=== PATIENT | female | born 1975 | race Caucasian/White ===

== ENCOUNTER → 2017-09-21 07:50 | Outpatient (CLI) | payer OTHER, SELFPAY ==
[2017-09-21 12:23] LABS: Absolute Lymphocyte Count 3.03 X10^3/ul (0.83-4.51); Absolute Neutrophil Count 6.6 X10^3/uL (2.0-7.7); Basophil# 0.03 X10^3/uL; Basophil% 0.3 % (0-1); Eosinophil# 0.22 X10^3/uL; Hematocrit 38.5 % (37-47); Hemoglobin 12.4 g/dl (12.0-15.0); Lymphocyte # 3.03 X10^3/ul (4.0); Lymphocyte % 28.1 % (19-41); Mean Corp Hgb Conc 32.2 g/gl (32-36); Mean Corpuscular Hgb 30.8 pg (27.0-32.0); Mean Corpuscular Volume 95.5 fL (81-99); Mean Platelet Vol. 10.1 fl (6.2-12.0); Monocyte% 7.4 % (0-10); Neutrophil % 61.4 % (47-70); Platelet Count 334 K/mm3 (150-450); RBC Distribution Width CV 14.8 % (11.6-14.6); RBC Distribution Width SD 49.2 fl (35.1-43.9); Red Blood Count 4.03 M/mm3 (4.2-5.4); White Blood Count 10.8 K/mm3 (4.4-11.0)
[2017-09-21 12:25] LABS: POSITIVE COUNT NO; POSITIVE DIFFERENTIAL NO; POSITIVE MORPHOLOGY NO
[2017-09-21 12:38] LABS: Hemoglobin A1c 6.2 % (4.2-6.3)
[2017-09-21 12:42] LABS: ALB/GLOB Ratio 0.9 RATIO (0.9-2.4); AST(SGOT) 14 U/L (15-37); Alanine Aminotransfer ALT/SGPT 29 U/L (13-56); Albumin, Serum 3.5 g/dL (3.2-5.0); Alkaline Phosphatase 64 U/L (45-117); Anion Gap 8 (5-15); BUN 17 mg/dL (7-18); BUN/Creat Ratio 23.6 RATIO (10-20); Calcium,Total 8.2 mg/dL (8.5-10.1); Chloride 102 mmol/L (98-107); Cholesterol 177 mg/dL (200); Creatinine, Serum 0.72 mg/dL (0.55-1.02); EST Glomerular Filtration Rate 95 mL/min (>60); Est Glom Filt Rate - Afr Amer 115 mL/min (>60); Globulin 3.7 g/dL (2.2-4.2); Glucose 87 mg/dL (74-106); High Density Lipoprotein 42 mg/dL; Potassium 3.9 mmol/L (3.5-5.1); Protein, Total 7.2 g/dL (6.4-8.2); Sodium Level 138 mmol/L (136-145); Triglycerides 212 mg/dL; Very Low Density Lipoprotein 42 mg/dL (5-40)
[2017-09-21 12:47] LABS: Microalbumin,Random Urine 35.6 mg/L (NO RANGE EST.)
== END ==
PROVIDERS: Family Provider Family Medicine; PCP Family Medicine; Visit Provider Family Medicine
DX: E11.9 Type 2 diabetes mellitus without complications (principal); M06.9 Rheumatoid arthritis, unspecified
CPT/HCPCS: 36415; 80053; 80061; 82043; 82570; 83036; 85025

== ENCOUNTER 2018-02-15 22:40 | Emergency (ER) | payer OTHER, SELFPAY ==
[2018-02-15 22:41] VITALS: BP 151/108; PULSE 90; RESP 19; TEMP 36.5; O2SAT 96; BMI 34.9
--- NOTE | 2018-02-15 23:00 | EKG12_ITS ---
Test Reason : CP Blood Pressure : / mmHG Vent. Rate : 086 BPM Atrial Rate : 086 BPM P-R Int : 148 ms QRS Dur : 098 ms QT Int : 370 ms P-R-T Axes : 060 044 -10 degrees QTc Int : 442 ms Normal sinus rhythm Nonspecific T wave abnormality Abnormal ECG Confirmed by JOSE ANGEL CORTES, ECTOR ([id number]), pictures editor SCOTT NIEVES ([id number]) on 02/18/2018 3:06:20 PM Referred By: ARJUN Confirmed By:ECTOR WALTER MD
--- NOTE | 2018-02-15 23:01 | ED.VISSUMM ---
- ER Visit Summary Date of Service: 02/15/18 Chief Complaint: Chest pain History of Present Illness: The patient is a 42 F continuous right sided chest pain for the past week. Pain into the back. No left-sided pain. Dyspnea. Patient states had a upper respiratory illness a few weeks ago for sinus. Was placed on an antibiotic by PCP, states developing to her lungs, had a second round of antibiotics. Pain has been persistent. Worse with deep breaths and laying down. No PE risk factors. No tobacco history. History of rheumatoid arthritis on immunosuppressants. History diabetes, hypertension hypercholesterolemia. Stress test this past summer for screening due to risk factors and family history of MIs. Physical Examination: General: Alert and oriented ?3, no acute distress HEENT: Normocephalic, atraumatic. Moist mucosa membranes Neck: supple, nontender. Cardiovascular: Regular rate and rhythm, no murmurs. Chest wall tenderness right upper chest along with right posterior ribs. No crepitus. Respiratory: Normal breath sounds, symmetric, no distress Abdomen: Soft, nontender, nondistended Extremities: Nontender, no edema, pulses intact ?4 Neuro: no focal neurological deficits. Test Results: EKG: Sinus Rate of 86, no ST changes. T wave inversions inferior leads. White count 19. Neutrophils 67. Creatinine 0.84. Troponin negative. D-dimer 0.45. UA negative. Chest x-ray negative. Emergency Department Course and Treatment: Patient presents with right-sided chest pain. Recent illness. Cardiac workup negative. Pain with deep breaths complaining of dyspnea, d-dimer obtained in the negative range. EKG did notes T wave inversions inferior leads. Persistent symptoms for a week, negative troponin less likely cardiac in nature. KHUSHI score 0. Heart score of 3. Patient was given Toradol with improvement of symptoms. She has Aleve at home. Times complains of chest tightness, she has a nebulizer at home, prescription for medications will be refilled. She will follow-up with her PCP. Signs and symptoms discussed return. All questions were answered. Treatment Plan: [] Disposition: Discharge Impression: 1. Atypical chest pain 2. Pleurisy This note was generated with Sensegonation software. It may contain incorrect words, spelling, and punctuation that were not noted in review of the chart prior to signing ED Disposition - Plan for ED Patient: Disposition: Home or Assisted Living Chief Complaint: Chest Pain Diagnosis: Atypical chest pain Instructions: ED Chest Pain Pleurisy Prescriptions: Albuterol Aerosols [Ventolin Aerosols] 2.5 mg INHALATION Q4HWA.RT PRN #[id number] vial.neb. PRN Reason: Wheezing Referrals: Naina Hunter MD [Primary Care Provider] - 3-5 Days
[2018-02-15 23:40] VITALS: BP 129/75; PULSE 74; RESP 26; O2SAT 96
[2018-02-15 23:51] LABS: Absolute Lymphocyte Count 4.43 X10^3/ul (0.83-4.51); Absolute Neutrophil Count 12.7 X10^3/uL (2.0-7.7); Basophil# 0.04 X10^3/uL; Basophil% 0.2 % (0-1); Eosinophil# 0.23 X10^3/uL; Eosinophils% 1.2 % (0-5); Hemoglobin 12.5 g/dl (12.0-15.0); Lymphocyte # 4.43 X10^3/ul (4.0); Lymphocyte % 23.4 % (19-41); Mean Corp Hgb Conc 32.9 g/gl (32-36); Mean Corpuscular Hgb 31.6 pg (27.0-32.0); Mean Corpuscular Volume 96.2 fL (81-99); Mean Platelet Vol. 10.2 fl (6.2-12.0); Monocyte# 1.24 X10^3/uL; Monocyte% 6.5 % (0-10); Platelet Count 266 K/mm3 (150-450); RBC Distribution Width SD 51.1 fl (35.1-43.9); Red Blood Count 3.95 M/mm3 (4.2-5.4)
[2018-02-15 23:52] LABS: POSITIVE COUNT NO; POSITIVE DIFFERENTIAL NO; POSITIVE MORPHOLOGY NO
[2018-02-16] VITALS: BP 127/71; PULSE 74; RESP 18; O2SAT 98
[2018-02-16 00:13] LABS: International Normalized Ratio 0.9; Prothrombin Time (Protime)PT. 12.6 SECONDS (11.7-14.9)
[2018-02-16 00:14] LABS: Partial Thromboplast Time 26.1 Seconds (24.1-36.2)
[2018-02-16] MEDS: 0.9% Normal Saline 1,000 ML 150 ML IV (00:14)
[2018-02-16 00:18] LABS: D-Dimer Quantitative (DVT/PE) 0.45 FEU/ug/m (0.27-0.49)
--- NOTE | 2018-02-16 00:31 | RAD_ITS ---
STUDY: X-RAY CHEST REASON FOR EXAM: Female, 42 years old. Right-sided chest pain for 2 weeks. TECHNIQUE: PA and lateral views of the chest. COMPARISON: February 13, 2017. FINDINGS: Cardiac monitoring leads are present. The lungs are clear and expanded. There is no demonstrated pleural abnormality. Normal size heart. Normal mediastinum and hortensia. There is prominence of the pulmonary hilar arteries without peripheral pulmonary vascular congestion. There is atherosclerotic calcification of the aortic arch with tortuosity. There is an increased kyphosis of the thoracic spine. There is multilevel thoracic spondylosis. Normal visualized ribs, clavicles, and shoulders. There is no demonstrated abnormality of the visualized soft tissue structures of the upper abdomen. RAD/Chest PA and Lateral IMPRESSION: No radiographic evidence of acute cardiopulmonary disease. Electronically Signed: Mirian Pryor MD at 1:11 EDT , Service support ,
[2018-02-16 00:41] LABS: Anion Gap 10 (5-15); BUN 16 mg/dL (7-18); Chloride 103 mmol/L (98-107); Creatinine, Serum 0.84 mg/dL (0.55-1.02); EST Glomerular Filtration Rate 79 mL/min (>60); Est Glom Filt Rate - Afr Amer 95 mL/min (>60); Estimated Creatinine Clearance 88.91 ml/min; Glucose 176 mg/dL (74-106); Sodium Level 137 mmol/L (136-145)
[2018-02-16 01:00] VITALS: BP 126/77; PULSE 79; RESP 18; O2SAT 94
[2018-02-16 02:00] VITALS: BP 147/78; PULSE 78; RESP 18; O2SAT 94
[2018-02-16] MEDS: Ketorolac 30 MG/ML Syringe IV (02:01)
[2018-02-16 02:02] LABS: Bacteria 0 SEEN /hpf (None Seen); Mucous, Urine 0 SEEN /hpf (<or=2+); Red Blood Cells-Urine 0 SEEN /hpf (0-5); Squamous Epithelial Cells - UA 0 SEEN /hpf (5-10); White Blood Cells 0 SEEN /hpf (0-5)
[2018-02-16 02:04] LABS: Color, Urine Yellow (Yellow); Glucose, Dipstick 50 mg/dl (Normal); Ketone-Dipstick 5 mg/dl (Negative); Leukocyte Esterase-Dipstick Negative /ul (Negative); Nitrite-Dipstick Negative (Negative); Occult Blood-Urine Negative /ul (Negative); Protein-Dipstick Negative (Negative); Specific Gravity, Urine 1.015 (1.002-1.030); Urine Bilirubin Dipstick Negative (Negative); Urine Clarity Clear (Clear); Urine Urobilinogen Normal (Normal); Urine pH 6.5 (5.0 - 8.0)
[2018-02-16 02:33] VITALS: BP 133/73; PULSE 83; RESP 16; O2SAT 98
== END 2018-02-16 02:40 | disposition home or self-care (01) ==
PROVIDERS: Emergency Provider Emergency Medicine; Family Provider Family Medicine; PCP Family Medicine
DX: R07.89 Other chest pain (principal); R09.1 Pleurisy; M06.9 Rheumatoid arthritis, unspecified; E11.9 Type 2 diabetes mellitus without complications; I10 Essential (primary) hypertension; Z79.899 Other long term (current) drug therapy
CPT/HCPCS: 71046; 80048; 81001; 84484; 85025; 85379; 85610; 85730; 93005; 96361; 96374; 99285; J7030; A4216

== ENCOUNTER 2018-08-13 07:30 | Outpatient (RCR) | payer OTHER, SELFPAY ==
--- NOTE | 2018-07-26 09:16 | HP.PTEVAL_ITS ---
Patient's Visit Information CAREY ULRICH is a 42 year old F referred to Physical Therapy by SHAGUFTA Cantu with a diagnosis of DEGENERATION OF LUMBAR INTERERTBRAL DISC,LUMBAR STENOSIS,RADICULOPATHY. Date of Evaluation: 07/26/18 Physical Therapist: Albert Boston, PT, Cert MDT, OCS - Visit Plan Frequency: 2x /Week Duration: 4 Weeks Plan: GRADED LUMBAR NEUTRAL DLS PROGRAM,POSTURAL EX'S,MODALITIES FOR PAIN RELEIVE - Subjective Findings: This 42 y/o female presents to physical therapy lumbar pain for 2 years. Patient pain located symmtrical lumbar intermittant pain burning and knive pain. Patient had epidual injection x3 ,burning nerve helped leg pain.Patient seen family DR then referred to pain managemnt. Aggravating factors lifting,bending,sitting,driving,standing,job demands. Alleviating symptoms better with ice rest. Coughing/sneezing-.Bowel/bladder good. Sleeping good at night.No h/o trauma. Prior PT prior to MRI.Patient seen chiropractor Patient had MRI and x-rays. Patient pain affects QOL of function and ADL'S. SOCIAL: . VOCATION: [employer] ,[employer]. - Pain Bilateral Back Pain Intensity (Out of 10): 3 Pain Intensity Range: 10 - Objective POSTURE: mild foward posture. GAIT: normal momo. SYMMTRIES: align. PALAPTION: unremarkable. FLEXABLITY: hams min tight. MMT: quads/hams 4/5,hip flexion /abd 4-/5 ,ankle 4/. LUMBAR ROM: flexion min loss,extension min/mod loss,side glides min/mod loss - Special Tests L/S Slump test left side: Negative L/S Slump test right side: Negative L/S Left Straight Leg Raise: Negative L/S Right Straight Leg Raise: Negative Lumbar Standing: Flexion - Mechanical Response: No effect Lumbar Standing: Flexion - Symptoms During Testing: No effect Lumbar Standing: Flexion - Symptoms After Testing: No effect Lumbar Standing: Extension - Symptoms During Testing: Increases Lumbar Standing: Extension - Symptoms After Testing: No worse Lumbar Standing: Right Side Glides - Mechanical Response: No effect Lumbar Standing: Right Side [place] - Symptoms During Testing: Increases Lumbar Standing: Right Side [place] - Symptoms After Testing: No worse Lumbar Standing: Left Side [place] - Mechanical Response: No effect Lumbar Standing: Left Side [place] - Symptoms During Testing: Increases Lumbar Standing: Left Side [place] - Symptoms After Testing: No worse Lumbar Lying: Flexion - Mechanical Response: No effect Lumbar Lying: Flexion - Symptoms During Testing: Increases Lumbar Lying: Flexion - Symptoms After Testing: No worse Lumbar Lying: Extension - Mechanical Response: No effect Lumbar Lying: Extension - Symptoms During Testing: Increases Lumbar Lying: Extension - Symptoms After Testing: Centralized - Goals Goal 1:: Independant with HEP Goal Time Frame: 4-6 Weeks Goal 2:: Independant with posture/body mechanics Goal Time Frame: 4-6 Weeks Goal 3:: Decrease lumbar pain by 50% or greater to improve function. Goal Time Frame: 4-6 Weeks Goal 4:: Patient to improve lumbar ROM for function of recovery Goal Time Frame: 4-6 Weeks Goal 5:: Patient to improve BACK MACY score by 5 points to improve QOL. Goal Time Frame: 4-6 Weeks - Rehabilitation Potential Physical Therapy Diagnosis: This patient has symmtrical lumbar pain with decrease ROM,poor TA/multifidas activation,strength impairs ADL'S and function thus benifit from skilled Rehabilitation Potential: Good - Anticipated Interventions Patient/Client Instruction: Educate patient on: Condition, Plan of Care For the Purpose of:: To decrease pain, To increase ROM, To improve muscle performance and motor function, To improve ability to perform ADL's, To improve performance and independence with ADL's, To improve ability of physical actions for home/community/work/leisure, To improve health of tissue, To decrease soft tissue restriction, To increase flexibility/ROM, To reduce risk of recurrence, To improve ability to perform tasks related to life management Therapeutic Exercise to Include: Strength training, Body mechanics, Postural training, Flexibilty training, Dynamic Lumbar Stabilization For the Purpose of:: To decrease pain, To increase ROM, To improve muscle performance and motor function, To improve ability to perform ADL's, To increase tolerance to activity/condition/position, To improve ability of physical actions for home/community/work/leisure, To improve health of tissue, To decrease soft tissue restriction, To increase flexibility/ROM, To improve endurance, To reduce risk of recurrence, To improve health and function, To improve ability to perform tasks related to life management TENS: Yes IF ES: Yes Cryotherapy (ice pack, ice massage): Yes Thermo therapy (hot pack): Yes Ultrasound (thermal/non thermal): Yes For the Purpose of:: To decrease pain, To decrease swelling/inflammation, To increase ROM, To improve nutrient delivery to tissue, To increase oxygenation perfusion, To improve health of tissue, To decrease soft tissue restriction Thank you for the opportunity to evaluate your patient. For Medicare and Medicare HMO plans, please review the plan of care and approve it. It will need to be FAXED BACK to us at [phone] for Medicare purposes. For Medicare only, by signing this I certify the plan of care. Please let me know if there are questions or concerns regarding this plan of care. Physician Signature: Date:
--- NOTE | 2019-01-02 15:54 | HP.PTDCNRP_ITS ---
HP - Discharge Summary (1) - Patient Information CAREY ULRICH was seen in my office for initial evaluation on 07/26/18. The following Plan of Care was established for this patient: Initial Frequency: 2x /Week Initial Duration: 4 Weeks - Anticipated Interventions Patient/Client Instruction: Educate patient on: Condition, Plan of Care For the Purpose of:: To decrease pain, To increase ROM, To improve muscle perfor radha and motor function, To improve ability to perform ADL's, To improve performance and independence with ADL's, To improve ability of physical actions for home/community/work/leisure, To improve health of tissue, To decrease soft tissue restriction, To increase flexibility/ROM, To reduce risk of recurrence, To improve ability to perform tasks related to life management Therapeutic Exercise to Include: Strength training, Body mechanics, Postural training, Flexibilty training, Dynamic Lumbar Stabilization For the Purpose of:: To decrease pain, To increase ROM, To improve muscle performance and motor function, To improve ability to perform ADL's, To increase tolerance to activity/condition/position, To improve ability of physical actions for home/community/work/leisure, To improve health of tissue, To decrease soft tissue restriction, To increase flexibility/ROM, To improve endurance, To reduce risk of recurrence, To improve health and function, To improve ability to perform tasks related to life management TENS: Yes IF ES: Yes Cryotherapy (ice pack, ice massage): Yes Thermo therapy (hot pack): Yes Ultrasound (thermal/non thermal): Yes For the Purpose of:: To decrease pain, To decrease swelling/inflammation, To increase ROM, To improve nutrient delivery to tissue, To increase oxygenation perfusion, To improve health of tissue, To decrease soft tissue restriction This patient was last seen in our office 08/13/18. Pertinent comments regarding their Physical therapy will appear below: Patient seen for PT for low back pain DDD . Pateint PT focused on DLS,postural ex's ,strengthening. Thus is d/c. At this point I will be discontinuing this patient from physical therapy. I would be happy to see this patient again in the future if found appropriate by the physician. Thank you! Albert Boston, PT, Cert MDT, OCS
== END 2018-08-13 19:00 | disposition home or self-care (01) ==
LOC: PT 07:30
PROVIDERS: Family Provider Family Medicine; PCP Family Medicine; Referring Provider Nurse Practitioner Family; Visit Provider Nurse Practitioner Family
DX: M51.36 Other intervertebral disc degeneration, lumbar region (principal); M47.817 Spondylosis without myelopathy or radiculopathy, lumbosacral region; M48.061 Spinal stenosis, lumbar region without neurogenic claudication; M47.816 Spondylosis without myelopathy or radiculopathy, lumbar region; M46.96 Unspecified inflammatory spondylopathy, lumbar region; M54.16 Radiculopathy, lumbar region
CPT/HCPCS: 97110; 97162

== ENCOUNTER 2020-12-06 05:54 | Day surgery (SDC) | payer MEDICAID, SELFPAY ==
[2020-12-06 06:39] VITALS: BP 131/54; PULSE 80; RESP 18; TEMP 36.4; O2SAT 98; BMI 33.4
[2020-12-06] MEDS: Lactated Ringers 1,000 ML 100 ML IV (06:52)
--- NOTE | 2020-12-06 07:00 | RAD_ITS ---
PROCEDURE: Transforaminal steroid injection on the left L4-S1 level. DATE OF EXAMINATION: 12/06/2020. INDICATION: Female, 45 years old. Chronic back pain. FLUOROSCOPY TIME (if supplied): (20 seconds) minutes/seconds. 3 images were obtained. RAD/Lumbar Spine 2 or 3 Views IMPRESSION: Intraoperative imaging provided for left L4-S1 foraminal steroid injection. Electronically Signed: Jeferson Fragoso MD at 14:07 EDT , Service support ,
[2020-12-06 07:26] LABS: Bedside Glucose 152 mg/dL (70-110)
[2020-12-06] MEDS: MethylPREDNISolone Acetate 80 MG/ML Vial (07:44)
[2020-12-06] MEDS: Lidocaine 1% (5 ml sdv) 5 ML Vial (07:44)
[2020-12-06] MEDS: Bupivacaine 0.25% 30 ML Vial (07:44)
[2020-12-06 07:56] VITALS: BP 115/71; BP 131/54; PULSE 80; RESP 16; TEMP 36.1; O2SAT 100
[2020-12-06 08:00] VITALS: BP 105/70; BP 131/54; PULSE 79; RESP 16; O2SAT 99
[2020-12-06 08:03] VITALS: BP 124/76; BP 131/54; PULSE 80; RESP 16; O2SAT 98
[2020-12-06 08:07] VITALS: BP 112/71; BP 131/54; PULSE 78; RESP 16; TEMP 36.1; O2SAT 100
[2020-12-06 08:33] VITALS: BP 131/54
--- NOTE | 2020-12-06 17:13 | PCM.OPRPT ---
Report of Operation Date of Procedure: 12/06/20 Description of Surgical Findings:: PREOPERATIVE DIAGNOSIS: Lumbosacral radiculopathy, lumbosacral degenerative disc disease, lumbosacral spinal stenosis POSTOPERATIVE DIAGNOSIS: Lumbosacral radiculopathy, lumbosacral degenerative disc disease, lumbosacral spinal stenosis PROCEDURE PERFORMED: Left-sided lumbar transforaminal epidural steroid injection, L4-5 and L5-S1. ANESTHESIA: BLOOD LOSS: COMPLICATIONS: DESCRIPTION OF PROCEDURE: History and physical of today was reviewed. Risks and benefits of the procedure were explained. The patient understood and agreed to proceed. Informed consent was obtained. IV inserted per routine protocol. The patient was taken to the operating room and placed in the prone position with a pillow positioned underneath the abdomen. The left side of the lower back was prepped and draped in a sterile fashion using iodine x3. Under fluoroscopy guidance on oblique view, the L4 through S1 vertebral bodies were visualized. The skin and subcutaneous tissue was anesthetized with approximately 5 mL of 1% lidocaine using a 25-gauge regular needle. Under direct visualization with fluoroscopy at approximately 35-degree angle, starting on the left L4, ending on the left L5, using a 22-gauge 5-inch spinal needle, the needle was advanced via the skin. The tip of the needle was maneuvered and directed towards the inferior and medial gutter of the transverse process at the superiormost aspect of the neural foramen. Once the tip of the needle was at the vicinity of the foramen, after negative aspiration for blood or CSF, a total of 1 mL of contrast was injected in divided doses between both levels to confirm correct placement of the needle as well as medial spread. The confirmation was obtained on AP as well as lateral view. After repeated negative aspiration and confirmation on AP as well as lateral view, a total of 6 mL of preservative-free 0.25% Marcaine with 80 mg of Depo-Medrol was injected in divided doses between both levels. The needles were then removed intact. The patient experienced no sign or symptoms of intrathecal or intravascular injection. The patient experienced no paresthesia. The procedure was completed without any apparent difficulty or any complications. The patient appeared to tolerate it well. ASSESSMENT AND PLAN: This is a 45-year-old female with lumbosacral radiculopathy, lumbosacral degenerative disk disease, and lumbosacral spinal stenosis, status post left-sided lumbar transforaminal epidural steroid injection at L4-5, L5-S1. The patient will continue her current medications. The patient will follow up in approximately 2 weeks for reevaluation.
== END 2020-12-06 09:03 | disposition home or self-care (01) ==
LOC: SDC 06:08 → AC 06:08
PROVIDERS: Referring Provider Anesthesiology Pain Medicine; Visit Provider Anesthesiology Pain Medicine
PROC: 3E0S3BZ Introduction of Anesthetic Agent into Epidural Space, Percutaneous Approach (ICD-10-PCS; CPT 64484; principal; 2020-12-06 07:45)
DX: M51.17 Intervertebral disc disorders with radiculopathy, lumbosacral region (principal); M48.07 Spinal stenosis, lumbosacral region; G89.29 Other chronic pain; I10 Essential (primary) hypertension; E11.9 Type 2 diabetes mellitus without complications; E78.00 Pure hypercholesterolemia, unspecified; M06.9 Rheumatoid arthritis, unspecified; Z79.891 Long term (current) use of opiate analgesic; Z79.84 Long term (current) use of oral hypoglycemic drugs; Z79.899 Other long term (current) drug therapy; Z86.16 Personal history of COVID-19
CPT/HCPCS: 64484; 64483; 72100; 82962; J7120

== ENCOUNTER 2021-07-11 09:56 | Day surgery (SDC) | payer MEDICAID, SELFPAY ==
--- NOTE | 2021-07-08 13:13 | HP.PCM_ITS ---
History and Physical Date of Admission: 07/11/21 Chief Complaint: Follow up/medication refill History of Present Illness: This is a 45 Y/O Female who was evaluated by our office today. Pain: low back and lt hip/ buttock,numbness in bilateral legs and feet Quality: constant, varies in intensity Region: pain across the lower back into the left hip/buttock and has numbness down the bilateral legs. Severity: ache, burning, numbness Timing: worsened since beginning of 2015 Aggravated by: standing for long periods, lifting Relieved by: laying flat in bed, ice Pain score (out of 10): 7-8/10 Other info: Follow up.States pain is now across lower back and down into left buttocks and numbness in bilateral legs and feet. Needs refill on [place]. states that she has been taking the norco at night when the pain is really bad to help her sleep. states that she was taking care of her mother who was on hospice and sunday. states she cannot bend her toes on her left foot. would like to Discuss SCS. Review of Systems: Patient denies any fever, chills, headache, change in weight without trying, vision or hearing problems. No cp, sob, [place], pnd, orthopnea, or peripheral edema.They note no lumps or swollen glands, no new rashes, changing moles, or change in bowel or bladder function. Mood has been stressed and depressed due to mothers passing. Past Medical History: h/o HTN h/o esophageal reflux h/o Type II Diabetes h/o rheumatoid arthritis h/o vitamin D deficiency h/o dyslipidemia h/o anxiety h/o depression h/o panic attacks h/o fatigue h/o asthma h/o colitis 03/09 h/o COVID 03/2020 s/p Cholecystectomy 2010 s/p shahram breast reduction 2004 s/p Bilateral tubal ligation 1997 s/p exploratory laparotomy s/p heart catheterization 2010 s/p hysterectomy 11/2017 s/p microdiskectomy L4-S1 05/2020 Family History: ======== Structured Family History ======== Father: Diabetes mellitus Mother: Arthritis, Diabetes mellitus Brother: Colitis, Diverticulitis Sister: Arthritis Father: Diabetes mellitus Mother: Arthritis, Diabetes mellitus Brother: Colitis, Diverticulitis Sister: Arthritis Social History: [Tobacco: Never smoker Pipe Smoker: No Cigar Smoker: No Chewing Tobacco User: No] Living situation: Occupation: [employer] Tobacco: Denies EtOH: Occasional Rec. drugs: Denies Allergies: codeine, ciprofloxacin Medications: 1) Crestor 5 mg oral tablet, One tablet daily 2) Cymbalta 60 mg oral delayed release capsule, Take 1 tablet by mouth once daily 3) diclofenac sodium 75 mg oral delayed release tablet, 1 PO BID with food. 4) esomeprazole 40 mg oral delayed release capsule, Take 1 tablet by mouth once daily 5) gabapentin 400 mg oral capsule, 1 PO TID 6) handicap placard, for 1 year 7) hydrocodone-acetaminophen 5 mg-325 mg oral tablet, 1 PO daily/BID PRN PAIN. 8) lisinopril 5 mg oral tablet, One tablet daily 9) loratadine 10 mg oral tablet, One tablet daily 10) metFORMIN 500 mg oral tablet, 2 tabs po qday 11) methocarbamol 500 mg oral tablet, 1 tablet BID as needed for spasms. 12) ProAir HFA 90 mcg/inh inhalation aerosol, 2 puffs q4 hrs 13) PT to eval and treat, to help develop a home exercise program 14) Singulair 10 mg oral tablet, Take 1 tablet by mouth once daily 15) spironolactone 50 mg oral tablet, One tablet daily 16) traZODone 50 mg oral tablet, One tablet BID Physical Examination: Wt: 209.6 lb Ht/Ln: 68 in BMI: 31.9 BP: 134/86 Pulse: 94 RR: 16 Temp: 96.9F Pain: 8 Well nourished and well developed in no acute distress. Alert and oriented to person, place and time. Affect is normal and appropriate. Mucosa pink and moist. Respirations even and unlabored. Neck is supple without significant lymphadenopathy or thyromegaly. Abdomen soft & non-tender. No HSM or masses appreciated. Extremities show no cyanosis, clubbing, or edema. Lumbar paraspinal muscle tenderness Lumbar ROM is limited due to pain worse with flexion. Bilateral lumbar facet loading is positive worse on the left. Sacroiliac Joint Tenderness on palpation. MICHELLE test is positive SLR is positive on the left. Motor and sensory exam is unchanged. 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 (Transmitted by JAMES DOCKERY NP) PRESCRIBE: hydrocodone-acetaminophen 5 mg-325 mg oral tablet, 1 PO daily/BID PRN PAIN., # 20, RF: 0. (Transmitted by JAMES DOCKERY NP) PRESCRIBE: methocarbamol 500 mg oral tablet, 1 tablet BID as needed for spasms., # 60, RF: 0. (Transmitted by JAMES DOCKERY NP) PRESCRIBE: diclofenac sodium 75 mg oral delayed release tablet, 1 PO BID with food., # 60, RF: 0. 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 Pt is still considering SCS Will refer the pt to [facility] for a SCS evaluation Pt will call for counseling regarding CBT and coping. UDS was reviewed and was compliant. Follow up with her surgeon. SOAPP score is 2 There are no signs of diversion or addiction with the pt, there is also no signs of abuse or misuse, continues to do well with their medications without any side effects, we will continue monitoring the pt closely. Weight loss was recommended today through diet and exercise. Life style modifications were also discussed today and the pt appears to understand. Risks and benefits of the above meds were discussed with the pt and they appear to understand. The common side effects of the medications were discussed and all of their questions and concerns were answered and they appear to understand Pt is to continue with her HEP. Pt has tried multiple modalities in the past with little or no success, will schedule the pt for a therapeutic/diagnostic caudal epidural steroid injection under fluoroscopy We have discussed the risks, benefits as well as alternatives of the procedure and the patient appears to understand and would like to proceed with the above plan. The above plan was discussed today with the pt in details and they appear to understand and agrees to continue with the plan.
[2021-07-11] MEDS: Lactated Ringers 1,000 ML 15 ML IV (10:25)
[2021-07-11 10:36] VITALS: BP 116/60; PULSE 90; RESP 18; TEMP 36.2; O2SAT 97; BMI 32.4
[2021-07-11 11:01] LABS: Bedside Glucose 145 mg/dL (70-110)
--- NOTE | 2021-07-11 11:35 | RAD_ITS ---
PROCEDURE: Caudal block. DATE OF EXAMINATION: 07/11/2021. INDICATION: Female, 45 years old. Chronic low back pain. FLUOROSCOPY TIME (if supplied): (2.1 seconds) minutes/seconds. One image was submitted. RAD/Fluor Guidance for Spine Inj IMPRESSION: Intraoperative imaging provided for caudal block. Electronically Signed: Jeferson Fragoso MD at 15:36 EST ,
[2021-07-11] MEDS: MethylPREDNISolone Acetate 80 MG/ML Vial (11:39)
[2021-07-11] MEDS: Bupivacaine 0.25% 30 ML Vial (11:39)
[2021-07-11] MEDS: Lidocaine 1% (5 ml sdv) 5 ML Vial (11:40)
[2021-07-11] MEDS: 0.9% Normal Saline (Pres. free 10 ML Vial (11:40)
[2021-07-11 11:47] VITALS: BP 116/60; BP 122/63; PULSE 91; RESP 18; TEMP 37.2; O2SAT 96
[2021-07-11 11:50] VITALS: BP 111/66; BP 116/60; PULSE 87; RESP 18; O2SAT 98
[2021-07-11 11:56] VITALS: BP 109/61; BP 116/60; PULSE 92; RESP 18; O2SAT 97
[2021-07-11 11:57] VITALS: BP 110/69; BP 116/60; PULSE 85; RESP 18; TEMP 37.3; O2SAT 97
[2021-07-11 12:20] VITALS: BP 116/60
--- NOTE | 2021-07-11 15:18 | OP.PCM_ITS ---
Report of Operation Date of Procedure: 07/11/21 Pre-Operative Diagnosis: Lumbosacral radiculopathy, lumbosacral degenerative di sc disease, lumbosacral spinal stenosis Post-Operative Diagnosis: Lumbosacral radiculopathy, lumbosacral degenerative disc disease, lumbosacral spinal stenosis Surgery/Procedure Performed:: Caudal epidural steroid injection under fluoroscopic guidance Type of Anesthesia: MAC Estimated Blood Loss (mL): Minimal Description of Procedure: DESCRIPTION OF PROCEDURE: History and physical of today was reviewed. Risks and benefits of the procedure were explained. The patient understood and agreed to proceed. Informed consent was obtained. IV inserted per routine protocol. The patient was taken to the operating room and placed in the prone position with a pillow positioned underneath the abdomen. The lower back and tailbone area was prepped and draped in a sterile fashion using iodine x3. Under fluoroscopy guidance on a lateral view, the caudal space was identified. The skin and subcutaneous tissue was anesthetized with approximately 3 mL of 1% lidocaine using a 25-gauge regular needle. Under direct visualization with fluoroscopy, using a 22-gauge 3-1/2-inch spinal needle, the needle was advanced via the skin through the sacral hiatus. The tip of the needle was passed through the sacrococcygeal ligament and advanced to approximately S4 area. After negative aspiration of blood or CSF, a total of 3 mL of contrast was injected to confirm correct placement of the needle as well as cephalad spread. The spread was followed to approximately L5 area. After confirmation on AP as well as lateral view and repeated negative aspiration, a total of 15 mL of preservative-free 0.125% Marcaine with 80 mg of Depo-Medrol was injected easily. The needle was then removed intact. The patient experienced no sign or symptoms of intrathecal or intravascular injection. The patient experienced no paresthesia. The procedure was completed without any apparent difficulty or any complications. The patient appeared to tolerate it well. ASSESSMENT AND PLAN: This is a 45-year-old female with lumbosacral radiculopathy, lumbosacral degenerative disc disease, lumbosacral spinal stenosis status post caudal epidural steroid injection, patient will continue her current medications, patient will follow in approximately 2 weeks for reevaluation. Complications None
== END 2021-07-11 23:59 | disposition home or self-care (01) ==
LOC: SDC 10:01 → AC 10:06
PROVIDERS: Referring Provider Anesthesiology Pain Medicine; Visit Provider Anesthesiology Pain Medicine
PROC: 3E0S3BZ Introduction of Anesthetic Agent into Epidural Space, Percutaneous Approach (ICD-10-PCS; CPT 62282; principal; 2021-07-11 11:45)
DX: M51.17 Intervertebral disc disorders with radiculopathy, lumbosacral region (principal); M06.9 Rheumatoid arthritis, unspecified; E11.9 Type 2 diabetes mellitus without complications; M48.07 Spinal stenosis, lumbosacral region; I10 Essential (primary) hypertension; E78.00 Pure hypercholesterolemia, unspecified; J45.909 Unspecified asthma, uncomplicated; F41.9 Anxiety disorder, unspecified; F32.A Depression, unspecified; K21.9 Gastro-esophageal reflux disease without esophagitis; Z79.84 Long term (current) use of oral hypoglycemic drugs; Z79.51 Long term (current) use of inhaled steroids; Z79.891 Long term (current) use of opiate analgesic; Z79.899 Other long term (current) drug therapy; Z86.16 Personal history of COVID-19
CPT/HCPCS: 62323; 01992; 64483; 77003; 82962; J7120; J3490

== ENCOUNTER 2021-09-19 11:54 | Day surgery (SDC) | payer MEDICAID, SELFPAY ==
--- NOTE | 2021-09-16 13:37 | HP.PCM_ITS ---
History and Physical Date of Admission: 09/19/21 Chief Complaint: Follow up post caudal injection decreased pain by 65% History of Present Illness: This is a 45 Y/O Female who was evaluated by our office today. Pain: low back and lt hip/ buttock,numbness in bilateral legs and feet Quality: constant, varies in intensity Region: pain across the lower back into the left hip/buttock and has numbness down the bilateral legs. Severity: ache, burning, numbness Timing: worsened since beginning of 2015 Aggravated by: standing for long periods, lifting Relieved by: laying flat in bed, ice Pain score (out of 10): 7-12/28 Other info: Follow up post caudal injection decreased pain by 65%. Reports pain across lower back that radiates down right side and on occasion left side. States she has a lot of tingling in legs and feet and burning pain. States pain does interfere with her ADL'S, she stated she did stop working due to her back pain, she stated she has been taking care of her grandson, she stated she is frustrated, she denies any bowel or bladder changes, she stated she would like to have SCS trial. Review of Systems: Patient denies any fever, chills, headache, change in weight without trying, vision or hearing problems. No cp, sob, [place], pnd, orthopnea, or peripheral edema.They note no lumps or swollen glands, no new rashes, changing moles, or change in bowel or bladder function. Mood has been stressed and depressed due to mothers passing. Past Medical History: h/o HTN h/o esophageal reflux h/o Type II Diabetes h/o rheumatoid arthritis h/o vitamin D deficiency h/o dyslipidemia h/o anxiety h/o depression h/o panic attacks h/o fatigue h/o asthma h/o colitis 03/09 h/o COVID 03/2020 s/p Cholecystectomy 2010 s/p shahram breast reduction 2004 s/p Bilateral tubal ligation 1997 s/p exploratory laparotomy s/p heart catheterization 2010 s/p hysterectomy 11/2017 s/p microdiskectomy L4-S1 05/2020 Family History: ======== Structured Family History ======== Father: Diabetes mellitus Mother: Arthritis, Diabetes mellitus Brother: Colitis, Diverticulitis Sister: Arthritis Father: Diabetes mellitus Mother: Arthritis, Diabetes mellitus Brother: Colitis, Diverticulitis Sister: Arthritis Social History: [Tobacco: Never smoker Pipe Smoker: No Cigar Smoker: No Chewing Tobacco User: No] Living situation: Occupation: [employer] Tobacco: Denies EtOH: Occasional Rec. drugs: Denies Allergies: codeine, ciprofloxacin Medications: 1) Crestor 5 mg oral tablet, One tablet daily 2) Cymbalta 60 mg oral delayed release capsule, Take 1 tablet by mouth once cisco y 3) diclofenac sodium 75 mg oral delayed release tablet, 1 PO BID with food. 4) esomeprazole 40 mg oral delayed release capsule, Take 1 tablet by mouth once daily 5) gabapentin 400 mg oral capsule, 1 PO TID 6) handicap placard, for 1 year 7) hydrocodone-acetaminophen 5 mg-325 mg oral tablet, 1 PO daily/BID PRN PAIN. 8) lisinopril 5 mg oral tablet, One tablet daily 9) loratadine 10 mg oral tablet, One tablet daily 10) metFORMIN 500 mg oral tablet, 2 tabs po qday 11) methocarbamol 500 mg oral tablet, 1 tablet BID as needed for spasms. 12) ProAir HFA 90 mcg/inh inhalation aerosol, 2 puffs q4 hrs 13) PT to eval and treat, to help develop a home exercise program 14) Singulair 10 mg oral tablet, Take 1 tablet by mouth once daily 15) spironolactone 50 mg oral tablet, One tablet daily 16) traZODone 50 mg oral tablet, One tablet BID Physical Examination: Wt: 214.6 lb Ht/Ln: 68 in BMI: 32.6 BP: 106/62 Pulse: 93 RR: 16 Temp: 97.5F Pain: 7 Well nourished and well developed in no acute distress. Alert and oriented to person, place and time. Affect is normal and appropriate. Mucosa pink and moist. Respirations even and unlabored. Neck is supple without significant lymphadenopathy or thyromegaly. Abdomen soft & non-tender. No HSM or masses appreciated. Extremities show no cyanosis, clubbing, or edema. Lumbar paraspinal muscle tenderness Lumbar ROM is limited due to pain worse with flexion. Bilateral lumbar facet loading is positive worse on the left. Sacroiliac Joint Tenderness on palpation. MICHELLE test is positive SLR is positive on the left. Positive surgical scar that is well healed. Motor and sensory exam is unchanged. Goals: Health Concerns: Assessment & Plan: # Degeneration of lumbar intervertebral disc (M51.36): # Lumbosacral spondylosis (M47.817): # Degenerative lumbar spinal stenosis (M48.06): # Lumbar spondylosis (M47.816): # Disorder of sacrum (M53.3): # Degeneration of lumbosacral intervertebral disc (M51.37): # Arthropathy of lumbar facet joint (M46.96): # Lumbar radiculopathy (M54.16): # Muscle pain (M79.1): # Solitary sacroiliitis (M46.1): # roasterman (current) use of opiate analgesic (Z79.891): # Lumbar post-laminectomy syndrome (M96.1): Continue current medication regime Follow up with her PCP and 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 UDS was performed today and will be reviewed on the next encounter to monitor pt medications compliance. Follow up with her surgeon. MRI of the lumbar spine was reviewed with the pt today and they appear to understand. SOAPP score is 2 There are no signs of diversion or addiction with the pt, there is also no signs of abuse or misuse, continues to do well with their medications without any side effects, we will continue monitoring the pt closely. Weight loss was recommended today through diet and exercise. Life style modifications were also discussed today and the pt appears to understand. Risks and benefits of the above meds were discussed with the pt and they appear to understand. The common side effects of the medications were discussed and all of their questions and concerns were answered and they appear to understand Pt is to continue with her HEP. Pt has tried multiple modalities in the past with little or no success, will schedule the pt for a SCS trial X2 leads at the thoracolumbar area under fluoro. We have discussed the risks, benefits as well as alternatives of the procedure and the patient appears to understand and would like to proceed with the above plan. The above plan was discussed today with the pt in details and they appear to understand and agrees to continue with the plan.
[2021-09-19] VITALS (8 sets, daily range): BP systolic 89–101; BP diastolic 44–64; PULSE 85–102; RESP 16; TEMP 36.6–37.3; O2SAT 95–100; BMI 31.5
[2021-09-19] MEDS: Lactated Ringers 1,000 ML 15 ML IV (12:39)
--- NOTE | 2021-09-19 13:20 | RAD_ITS ---
INDICATION: SPINAL CORD STIMULATOR INSERTION EXAMINATION/TECHNIQUE: X-RAY - XR Spine Lumbar 2 or 3 Views COMPARISON: None. FINDINGS: 7 intraoperative radiographs were taken for spinal cord stimulator insertion which appears to be in satisfactory position. RAD/Lumbar Spine 2 or 3 Views IMPRESSION: Intraoperative films taken during spinal cord stimulator insertion. See op note for better details. Electronically Signed: Luis Francis MD at 23:53 EDT ,
[2021-09-19] MEDS: Cefazolin 2 GM in 0.9% Normal Saline 100 ML IV (13:28)
[2021-09-19] MEDS: Lidocaine 2% (20 ml mdv) 20 ML Vial (13:38)
[2021-09-19] MEDS: 0.9% Normal Saline (Pres. free 10 ML Vial (13:38)
[2021-09-19 14:11] LABS: Bedside Glucose 119 mg/dL (74-106)
--- NOTE | 2021-09-19 14:15 | PCM.OPRPT ---
Report of Operation Date of Procedure: 09/19/21 Description of Surgical Findings:: Pre-Operative Diagnosis: Lumbosacral radiculopathy, lumbosacral degenerative disc disease, lumbosacral spinal stenosis, postlaminectomy syndrome of the lumbar spine Post-Operative Diagnosis: Lumbosacral radiculopathy, lumbosacral degenerative disc disease, lumbosacral spinal stenosis, postlaminectomy syndrome of the lumbar spine Surgery/Procedure Performed:: 1. Spinal cord stimulator thoracolumbar leads placement x2 percutanous trial 2-spinal cord stimulator complex programming, 3-intraoperative fluoroscopic interpretation for spinal cord stimulator insertion. ANESTHESIA: MAC COMPLICATIONS: None BLOOD LOSS: Minimal Implanted device: Spinal cord stimulator lead [id number] lot number [id number], lead #[id number] lot number [id number] PROCEDURE IN DETAIL: History and physical today was reviewed. Risks and benefits of procedure explained. The patient understood, agreed to procedure, informed consent was obtained. IV inserted per routine protocol. The patient was taken to the operating room, placed in the prone position with a pillow positioned underneath the abdomen. A 2 g of Ancef IV piggyback was infused per anesthesia. The lower back area was prepped and draped in a sterile fashion using iodine x3 Ioban was placed. The C-arm was brought in position for AP view at the L1-2 vertebral bodies under direct visualization fluoroscopy on a true AP view the L1-2 interlaminar space was identified skin and subcutaneous tissue and size approximately 10 cc of a mix of 2% lidocaine and 0.25% Marcaine using a 25-gauge regular needle followed by a 25-gauge 3-1/2 inch spinal needle towards the interlaminar space at T12-l1, the skin and subcutaneous tissue were then anesthetized and using an 11-gauge blade was then taken down to the skin and subcutaneous tissue using a 14-gauge 5 inch Touhy needle provided by the [employer] kit the needle was passed through the skin towards the interlaminar space at L1-2 and a left paramedian approach the needle was then advanced under direct visualization fluoroscopy towards the interlaminar space at L1-2 [id number] technique was then carried to air towards the interlaminar space at L1-2 once the tip of the needle was in the epidural space and loss of resistance was encountered to air and after confirmation of AP as well as oblique view of the spinal cord stimulator lead was then advanced under direct visualization fluoroscopy to be at the tip of the lead at top of T8 and the bottom of the lead around mid T10 after confirmation of AP as well as lateral view to confirm correct placement of the lead in the posterior compartment of the epidural space the previous procedure was then repeated at L1-2 interlaminar space to the right the second lead was then inserted under direct visualization with fluoroscopy to be at the tip of T8 and mid T10 area the leads were were then connected to the external neurostimulator and patient was then awakened to confirm satisfactory coverage of the painful area once satisfactory coverage was then achieved the stylette of each needle was then removed and the skin and subcutaneous tissue on to the left of the paramedian needles was then taken anesthetized with a total of 10 cc of the previous mixture of 0.25% Marcaine and 2% lidocaine using a 25-gauge regular needle , using the 3-0 silk stitch to secure both leads to the skin with Steri-Strips, the skin was then covered with a Steri-Strips and bacitracin, the external stimulator was then attached to the pouch to the left of the patient's lower back area, the patient was then returned into the supine position in a stable condition and returned to recovery in a stable condition patient experienced no signs or symptoms of intrathecal or intravascular injection patient experienced no paresthesia the procedure was completed without any apparent difficulty any complication the patient appeared to tolerate well, motor as well as sensory function was unchanged from prior to the procedure ESTIMATED BLOOD LOSS: Minimal less than 10 mL ASSESSMENT AND PLAN: This is a 46-year-old female with lumbosacral radiculopathy lumbosacral, degenerative disc disease lumbosacral spinal stenosis status post 1. Spinal cord stimulator thoracolumbar leads placement x2 percutaneous trial, spinal cord stimulator programming, intraoperative fluoroscopic interpretation, patient will continue her current medications a prescription was provided to the patient Keflex 500 mg capsule 1 p.o. every 8 hours for 7 days, [place] 5-325 mg 1 p.o. every 6 hours for acute postoperative pain as needed, postop instruction were given in writing to the patient as well as verbally, patient will follow approximately 3 to 4 days for reevaluation.
== END 2021-09-19 15:25 | disposition home or self-care (01) ==
LOC: SDC 11:57 → AC 11:59
PROVIDERS: Referring Provider Anesthesiology Pain Medicine; Visit Provider Anesthesiology Pain Medicine
PROC: (CPT 63650; principal; 2021-09-19 13:35)
DX: M51.37 Other intervertebral disc degeneration, lumbosacral region (principal); M06.9 Rheumatoid arthritis, unspecified; E11.9 Type 2 diabetes mellitus without complications; M48.07 Spinal stenosis, lumbosacral region; M96.1 Postlaminectomy syndrome, not elsewhere classified; E78.5 Hyperlipidemia, unspecified; F41.0 Panic disorder [episodic paroxysmal anxiety]; I10 Essential (primary) hypertension; E55.9 Vitamin D deficiency, unspecified; Z20.822 Contact with and (suspected) exposure to COVID-19; Z79.84 Long term (current) use of oral hypoglycemic drugs; Z79.891 Long term (current) use of opiate analgesic; Z79.899 Other long term (current) drug therapy; Z86.16 Personal history of COVID-19
CPT/HCPCS: 63685; 63650; 00300; 72100; 76000; 82962; 87426; J7120; J2405; J3490

== ENCOUNTER 2022-06-05 12:49 | Day surgery (SDC) | payer MEDICAID, SELFPAY ==
[2022-06-05 14:01] VITALS: BP 120/74; PULSE 78; RESP 16; TEMP 36.6; O2SAT 96; BMI 29.9
[2022-06-05] MEDS: Lactated Ringers 1,000 ML 15 ML IV (14:13)
--- NOTE | 2022-06-05 14:42 | RAD_ITS ---
PROCEDURE: Caudal block. DATE OF EXAMINATION: 06/05/2022. INDICATION: Female, 46 years old. Chronic low back pain. FLUOROSCOPY TIME (if supplied): (7.8 seconds) minutes/seconds. One image was obtained. RAD/Fluor Guidance for Spine Inj IMPRESSION: Intraoperative imaging provided for caudal block. Electronically Signed: Jeferson Fragoso MD at 8:13 EST ,
[2022-06-05] MEDS: Lidocaine 1% (5 ml sdv) 5 ML Vial (14:54)
[2022-06-05] MEDS: 0.9% Normal Saline (Pres. free 10 ML Vial (14:55)
[2022-06-05] MEDS: MethylPREDNISolone Acetate 80 MG/ML Vial (14:58)
--- NOTE | 2022-06-05 14:59 | OP.PCM_ITS ---
Report of Operation Date of Procedure: 06/05/22 Pre-Operative Diagnosis: Lumbosacral radiculopathy, lumbosacral degenerative di sc disease, lumbosacral spinal stenosis Post-Operative Diagnosis: Lumbosacral radiculopathy, lumbosacral degenerative disc disease, lumbosacral spinal stenosis Surgery/Procedure Performed:: Caudal epidural steroid injection under fluoroscopic guidance Type of Anesthesia: MAC Estimated Blood Loss (mL): Minimal Description of Procedure: DESCRIPTION OF PROCEDURE: History and physical of today was reviewed. Risks and benefits of the procedure were explained. The patient understood and agreed to proceed. Informed consent was obtained. IV inserted per routine protocol. The patient was taken to the operating room and placed in the prone position with a pillow positioned underneath the abdomen. The lower back and tailbone area was prepped and draped in a sterile fashion using iodine x3. Under fluoroscopy guidance on a lateral view, the caudal space was identified. The skin and subcutaneous tissue was anesthetized with approximately 3 mL of 1% lidocaine using a 25-gauge regular needle. Under direct visualization with fluoroscopy, using a 22-gauge 3-1/2-inch spinal needle, the needle was advanced via the skin through the sacral hiatus. The tip of the needle was passed through the sacrococcygeal ligament and advanced to approximately S4 area. After negative aspiration of blood or CSF, a total of 3 mL of contrast was injected to confirm correct placement of the needle as well as cephalad spread. The spread was followed to approximately L5 area. After confirmation on AP as well as lateral view and repeated negative aspiration, a total of 15 mL of preservative-free 0.125% Marcaine with 80 mg of Depo-Medrol was injected easily. The needle was then removed intact. The patient experienced no sign or symptoms of intrathecal or intravascular injection. The patient experienced no paresthesia. The procedure was completed without any apparent difficulty or any complications. The patient appeared to tolerate it well. ASSESSMENT AND PLAN: This is a 46-year-old female with lumbosacral radiculopathy, lumbosacral degenerative disc disease, lumbosacral spinal stenosis status post caudal epidural steroid injection, patient will continue her current medications, patient will follow in approximately 2 weeks for reevaluation. Complications None
[2022-06-05 15:00] VITALS: BP 111/87; BP 120/74; PULSE 78; RESP 16; TEMP 36.6; O2SAT 98
[2022-06-05 15:01] LABS: Bedside Glucose 83 mg/dL (74-106)
[2022-06-05 15:05] VITALS: BP 120/74; BP 122/90; PULSE 77; RESP 16; O2SAT 98
[2022-06-05 15:10] VITALS: BP 120/74; BP 127/106; PULSE 77; RESP 16; O2SAT 97
[2022-06-05 15:15] VITALS: BP 120/74; BP 141/78; PULSE 86; RESP 16; TEMP 36.6; O2SAT 100
[2022-06-05 15:40] VITALS: BP 120/74
== END 2022-06-05 15:49 | disposition home or self-care (01) ==
LOC: SDC 12:53 → AC 13:29
PROVIDERS: Referring Provider Anesthesiology Pain Medicine; Visit Provider Anesthesiology Pain Medicine
PROC: 3E0S3BZ Introduction of Anesthetic Agent into Epidural Space, Percutaneous Approach (ICD-10-PCS; CPT 62282; principal; 2022-06-05 14:20)
DX: M48.07 Spinal stenosis, lumbosacral region (principal); M51.17 Intervertebral disc disorders with radiculopathy, lumbosacral region; I10 Essential (primary) hypertension; E78.00 Pure hypercholesterolemia, unspecified
CPT/HCPCS: 62323; 64483; 77003; 82962; J7120; J3490

== ENCOUNTER 2023-12-24 09:28 | Day surgery (SDC) | payer OTHER, SELFPAY ==
[2023-12-24] VITALS (8 sets, daily range): BP systolic 103–121; BP diastolic 64–79; PULSE 75–85; RESP 16–94; TEMP 36.3–36.7; O2SAT 18–100; BMI 33.7
[2023-12-24] MEDS: MethylPREDNISolone Acetate 80 MG/ML Vial (07:42)
--- NOTE | 2023-12-24 09:49 | PCM.PRE.AN2 ---
ASA Classification* ASA Classification ASA Classification: 2 Assessment & Plan Anesthesia* Anesthesia Assessment Anesthesia Assessment: Discussed sedation and/or anesthesia options, risks, benefits, and alternatives with patient/parents/legal guardian/POA. Questions invited. The patient/parents/legal guardian/POA seems to understand and agrees to proceed with anesthesia plan. Reviewed the physical assessment, medical history, allergy history and patient home medications list prior to surgery/procedure/anesthetic and documented any changes. Performed airway and anesthesia risk assessments. Anesthesia Type Anesthesia Type: MAC (*see written pre anesthesia record for full assessment) Anesthesia Focused Assessment* Airway Assessment Mouth opens: >3 cm Mallampati Score: II Focused Labs Anesthesia Preop lab: CBC WBC 19.0 K/mm3 (4.4-11.0) H 02/15/18 23:40 RBC 3.95 M/mm3 (4.2-5.4) L 02/15/18 23:40 Hgb 12.5 g/dl (12.0-15.0) 02/15/18 23:40 Hct 38.0 % (37-47) 02/15/18 23:40 Plt Count 266 K/mm3 (150-450) 02/15/18 23:40 CHEMISTRY Potassium 4.0 mmol/L (3.5-5.1) 02/15/18 23:55 Sodium 137 mmol/L (136-145) 02/15/18 23:55 BUN 16 mg/dL (7-18) 02/15/18 23:55 Creatinine 0.84 mg/dL (0.55-1.02) 02/15/18 23:55 Glucose 176 mg/dL (74-106) H 02/15/18 23:55 POC Glucose 83 mg/dL (74-106) 06/05/22 14:12 COAG PT 12.6 SECONDS (11.7-14.9) 02/15/18 23:55 Pre-Assessment Diagnosis/Proposed Procedure Planned Operative Procedure(s): CAUDAL EPIDRUAL STEROID INJECTION UNDER FLUOROSCOPY Anesthesia History Anesthesia History - hydrotherapist: Anesthesia History - hydrotherapist Hx Hospitalization No 12/13/23 08:46 Any Problems With Anesthesia No 12/13/23 08:46 Cholinesterase deficiency No 12/13/23 08:46 You/Your Family Experience No 12/13/23 08:46 fever (hyperthermia) with Relationship Recent Exposure to Contagious No 06/05/22 14:01 Disease Does patient have nerve Yes: BRING YOUR REMOTE 12/13/23 08:46 stimulator Patient instructed to have device shut off --Does patient have Pacemaker or ICD? When Was Last Pacemaker Check QUESTION #4 FULL TEXT: You/Your Family Experience fever (hyperthermia) with Anesthesia Last Oral Intake Last Oral intake: Last Oral Intake NPO since Meds taken in AM with sips of water? Meds patient instructed to take am of surgery PONV PONV - hydrotherapist: PONV - hydrotherapist Female Yes 12/13/23 08:46 HX of Motion Sickness No 12/13/23 08:46 HX of N/V After Surgery No 12/13/23 08:46 Non-Smoker Yes 12/13/23 08:46 Duration of Surgery greater No 12/13/23 08:46 than 60 minutes Number of Risk Factors 2 12/13/23 08:46 PONV Score Moderate Risk 12/13/23 08:46 Height & Weight Height & Weight: Anesthesia: Height & Weight Height 5 ft 8 in 06/05/22 14:01 Respiratory Assessment Respiratory Assessment - hydrotherapist: Respiratory Tract Infection Hx - hydrotherapist Hx Respiratory Tract Infection No 12/13/23 08:46 STOP Sleep Apnea STOP Sleep Apnea - hydrotherapist: STOP Sleep Apnea - hydrotherapist Hx Hypertension Yes: CONTROLLED WITH MEDS 12/13/23 08:46 Hx Sleep Apnea Yes 12/13/23 08:46 CPAP No 12/13/23 08:46 BIPAP No 12/13/23 08:46 Do you snore loudly (louder than talking or can be heard Do you often feel tired/ fatigued/ sleepy during daytime? Has anyone observed you stop breathing during sleep? STOP Results Positive 12/13/23 08:46 QUESTION #5 FULL TEXT : Do you snore loudly (louder than talking or can be heard through closed doors)? Tobacco Use History Tobacco Use History - hydrotherapist: Tobacco Use History - hydrotherapist Tobacco Use Smoking Status Never smoker 12/13/23 08:46 Hx Tobacco Use No 12/13/23 08:46 Years Smoking Packs Smoked per Day Smoking Cessation Date was within the last 15 years Hx Smoking Cessation Date Hx Smoking Cessation Counseling Hematologic Medial History Hematologic Hx - hydrotherapist: Hematologic Medical Hx - employee representative Hx of Blood Transfusion No 12/13/23 08:46 Hx of Transfusion in last 3 No 12/13/23 08:46 Months Date of Last Transfusion (if within last 3 months) Ever experience any problems No 12/13/23 08:46 with transfusion(s)? Specify any problems Hx of Preganancy in last 3 No 12/13/23 08:46 Months Nurse Filling Out Transfusion [id number] 12/13/23 08:46 & Questions: Date: 12/13/23 12/13/23 08:46 Time: 08:48 12/13/23 08:46 Patient unable to answer at this time (ie. confused, unrespo /Reproduction History /Reproductive History - hydrotherapist: /Reproductive Hx- hydrotherapist Hx Now No 12/13/23 08:46 Gestational Age (in weeks): EDC: Hx Hx Para Hx Section SAB PFSH Medical History Thyroid disease Fatty liver History of stress test Wears glasses Depression Anxiety History of steroid therapy Diabetes Rheumatoid arthritis High cholesterol Back pain Gastric reflux Non-smoker Asthma Hoarseness Leg cramps History of echocardiogram Cardiology follow-up encounter Hypertension History of epidural anesthesia Home Medications ?Medication ?Instructions ?Recorded ?Last Taken ?Type diclofenac sodium 75 mg 75 mg PO BIDCM 02/13/17 12/23/23 History tablet,delayed release methocarbamol 500 mg tablet 500 mg PO BID 02/13/17 12/23/23 History trazodone 50 mg tablet 150 mg PO QHS 02/13/17 12/23/23 History albuterol sulfate 2.5 mg/3 mL 2.5 mg (3 mL) inhalation Q4HWA.RT 02/16/18 12/05/20 Rx (0.083 %) solution for nebulization PRN Wheezing ##30 hydrocodone-acetaminophen 5-325mg 1 tab PO Q6H PRN Pain 12/03/20 12/05/20 History 5mg-325mg metformin 500 mg tablet 500 mg PO BID 12/03/20 12/23/23 History mometasone 50 mcg/actuation nasal 1 spray intranasal BID 12/03/20 07/11/21 History spray (Nasonex) rosuvastatin 20 mg tablet (Crestor) 20 mg PO DAILY 12/03/20 12/23/23 History spironolactone 25 2 tab PO DAILY 12/03/20 12/23/23 History mg-hydrochlorothiazide 25 mg tablet omeprazole 40 mg capsule,delayed 40 mg PO DAILY PRN GERD 07/11/21 12/24/23 History release duloxetine 60 mg capsule,delayed 60 mg PO DAILY 12/13/23 12/24/23 History release (Cymbalta) gabapentin 400 mg capsule 400 mg PO TID 12/13/23 12/24/23 History hydroxyzine HCl 25 mg tablet 25 mg PO Q6H PRN anxiety 12/13/23 12/17/23 History lisinopril 2.5 mg tablet 2.5 mg PO DAILY 12/13/23 12/24/23 History metoprolol succinate 25 mg 25 mg PO DAILY 12/13/23 12/24/23 History tablet,extended release 24 hr pioglitazone 15 mg tablet (Actos) 15 mg PO DAILY 12/13/23 12/23/23 History thyroid (pork) 30 mg tablet 30 mg PO DAILY 12/13/23 12/20/23 History ([place] Thyroid) Allergy/AdvReac Type Severity Reaction Status Date / Time losartan Allergy Other Verified 12/24/23 09:43 ciprofloxacin (From Cipro) AdvReac Vomiting Verified 12/24/23 09:43 levothyroxine AdvReac RACING Verified 12/24/23 09:43 HEART Surgical History History of cardiac catheterization Hx of sinus surgery History of back surgery Hx laparoscopic cholecystectomy Hx of tubal ligation History of partial hysterectomy Hx of bilateral breast reduction surgery Social History Smoking Status: Never smoker Review of Systems (Anesthesia) ROS Narrative System reviewed and no additional complaints, except as documented.
[2023-12-24] MEDS: Lactated Ringers 1,000 ML 15 ML IV (09:52)
--- NOTE | 2023-12-24 10:05 | RAD_ITS ---
PROCEDURE: Caudal block. DATE OF EXAMINATION: December 24, 2023. INDICATION: Female, 48 years old. Low back pain. FLUOROSCOPY TIME (if supplied): (4 seconds) minutes/seconds. 1.62 mGy. 2 images were submitted. RAD/Fluoro Guided Needle Placement IMPRESSION: Intraoperative fluoroscopic services provided for caudal block. Electronically Signed: Jeferson Fragoso MD at 8:48 EDT ,
[2023-12-24 10:11] LABS: Bedside Glucose 118 mg/dL (74-106)
[2023-12-24] MEDS: Bupivacaine 0.25% 30 ML Vial (10:38)
[2023-12-24] MEDS: Lidocaine 1% (5 ml sdv) 5 ML Vial (10:38)
[2023-12-24] MEDS: 0.9% Normal Saline (Pres. free 10 ML Vial (10:38)
--- NOTE | 2023-12-24 10:40 | OP.PCM_ITS ---
Report of Operation Date of Procedure: 12/24/23 Pre-Operative Diagnosis: Lumbosacral radiculopathy, lumbosacral degenerative di sc disease, lumbosacral spinal stenosis Post-Operative Diagnosis: Lumbosacral radiculopathy, lumbosacral degenerative disc disease, lumbosacral spinal stenosis Surgery/Procedure Performed:: Diagnostic/therapeutic caudal epidural steroid injection under fluoroscopic guidance Type of Anesthesia: MAC Estimated Blood Loss (mL): Minimal Description of Procedure: DESCRIPTION OF PROCEDURE: History and physical of today was reviewed. Risks and benefits of the procedure were explained. The patient understood and agreed to proceed. Informed consent was obtained. IV inserted per routine protocol. The patient was taken to the operating room and placed in the prone position with a pillow positioned underneath the abdomen. The lower back and tailbone area was prepped and draped in a sterile fashion using iodine x3. Under fluoroscopy guidance on a lateral view, the caudal space was identified. The skin and subcutaneous tissue was anesthetized with approximately 3 mL of 1% lidocaine using a 25-gauge regular needle. Under direct visualization with fluoroscopy, using a 22-gauge 3-1/2-inch spinal needle, the needle was advanced via the skin through the sacral hiatus. The tip of the needle was passed through the sacrococcygeal ligament and advanced to approximately S4 area. After negative aspiration of blood or CSF, a total of 3 mL of contrast was injected to confirm correct placement of the needle as well as cephalad spread. The spread was followed to approximately L5 area. After confirmation on AP as well as lateral view and repeated negative aspiration, a total of 15 mL of preservative-free 0.125% Marcaine with 80 mg of Depo-Medrol was injected easily. The needle was then removed intact. The patient experienced no sign or symptoms of intrathecal or intravascular injection. The patient experienced no paresthesia. The procedure was completed without any apparent difficulty or any complications. The patient appeared to tolerate it well. ASSESSMENT AND PLAN: This is a 48-year-old female with lumbosacral radiculopathy, lumbosacral degenerative disc disease, lumbosacral spinal stenosis status post diagnostic/therapeutic caudal epidural steroid injection, patient will continue her current medications, patient will follow up in approximately 2 weeks for reevaluation. Complications None
--- NOTE | 2023-12-24 10:46 | PCM.POST.ANE ---
Anesthesia: Postop Eval I Current Vital Signs Temperature: 97.3 F Pulse Rate: 78 Blood Pressure: 110/64 Respiratory Rate: 16 Pulse Ox: 100 Oxygen Delivery Method: Room Air Assessment Airway patent: Yes Spontaneous unlabored respirations: Yes Mental status: Awake and Calm nausea: No Vomiting: No Anesthesia Complication: No Fluid Hydration Crystalloid volume administer (ml): 200 Total IV fluid infused: 200 Progress Note Anesthesia document: Postop Eval 1 completed: Yes
--- NOTE | 2023-12-24 11:12 | POSTOPAN2_ITS ---
Anesthesia Postop Eval I Sum Postop Eval Completion status Anesthesia document: Postop Eval 1 completed: Yes Anesthesia Postop Eval I Summary Anesthesia Postop Eval I Summary: Anesthesia Postop Eval I: Assessment Summary Airway patent Yes 12/24/23 10:47 [email or web address] Spontaneous unlabored Yes 12/24/23 10:47 AR [email or web address] respirations Mental status Awake,Calm 12/24/23 10:47 AR [email or web address] nausea No 12/24/23 10:47 AR [email or web address] Vomiting No 12/24/23 10:47 AR MANAGERMARA Anesthesia Postop Eval I: Fluid Summary Crystalloid volume administer 200 12/24/23 10:47 AR [email or web address] (ml) Colloids volume administered ( ml) Blood Product volume administered (ml) Total IV fluid infused 200 12/24/23 10:47 AR [email or web address] Anesthesia Postop Eval I: Summary Notes Anesthesia Complication No 12/24/23 10:47 SHEREE Anesthesia Complication Comment: Post-operative progress note Anesthesia: Postop Eval II Evaluation Mental status: Awake Pain Level: 0 nausea: No Vomiting: No
--- NOTE | 2023-12-24 11:12 | PCM.POSTANE2 ---
Anesthesia Postop Eval I Sum Postop Eval Completion status Anesthesia document: Postop Eval 1 completed: Yes Anesthesia Postop Eval I Summary Anesthesia Postop Eval I Summary: Anesthesia Postop Eval I: Assessment Summary Airway patent Yes 12/24/23 10:47 MARKETING OPERATIONS [email or web address] Spontaneous unlabored Yes 12/24/23 10:47 MARKETING OPERATIONS CONSULTANT.[email or web address] respirations Mental status Awake,Calm 12/24/23 10:47 MARKETING OPERATIONS CONSULTANT.[email or web address] nausea No 12/24/23 10:47 MARKETING OPERATIONS CONSULTANT.[email or web address] Vomiting No 12/24/23 10:47 MARKETING OPERATIONS CONSULTANTMARA Anesthesia Postop Eval I: Fluid Summary Crystalloid volume administer 200 12/24/23 10:47 MARKETING OPERATIONS CONSULTANT.[email or web address] (ml) Colloids volume administered ( ml) Blood Product volume administered (ml) Total IV fluid infused 200 12/24/23 10:47 MARKETING OPERATIONS [email or web address].[email or web address] Anesthesia Postop Eval I: Summary Notes Anesthesia Complication No 12/24/23 10:47 SHEREE Anesthesia Complication Comment: Post-operative progress note Anesthesia: Postop Eval II Evaluation Mental status: Awake Pain Level: 0 nausea: No Vomiting: No
== END 2023-12-24 11:57 | disposition home or self-care (01) ==
LOC: SDC 09:29 → AC 09:30
PROVIDERS: PCP Nurse Practitioner Family; Referring Provider Anesthesiology Pain Medicine; Visit Provider Anesthesiology Pain Medicine
PROC: 3E0S3BZ Introduction of Anesthetic Agent into Epidural Space, Percutaneous Approach (ICD-10-PCS; CPT 62282; principal; 2023-12-24 11:00)
DX: M51.17 Intervertebral disc disorders with radiculopathy, lumbosacral region (principal); E11.9 Type 2 diabetes mellitus without complications; M48.07 Spinal stenosis, lumbosacral region; K21.9 Gastro-esophageal reflux disease without esophagitis; E78.00 Pure hypercholesterolemia, unspecified; I10 Essential (primary) hypertension; Z79.51 Long term (current) use of inhaled steroids; Z79.84 Long term (current) use of oral hypoglycemic drugs; Z79.899 Other long term (current) drug therapy
CPT/HCPCS: 62323; 01992; 64483; 77002; 82962; J7120; J2405; J3490

== ENCOUNTER 2024-12-22 07:19 | Day surgery (SDC) | payer OTHER, SELFPAY ==
--- NOTE | 2024-12-18 15:15 | PAT.ANESEVAL ---
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 When Was Last Pacemaker Check QUESTION #4 FULL TEXT: You/Your Family Experience fever (hyperthermia) with Anesthesia Last Oral Intake Last Oral intake: Last Oral Intake NPO since Meds taken in AM with sips of water? Meds patient instructed to take am of surgery PONV PONV - manager architectural: PONV - manager architectural Female Yes 12/18/24 10:24 HX of Motion Sickness No 12/18/24 10:24 HX of N/V After Surgery No 12/18/24 10:24 Non-Smoker Yes 12/18/24 10:24 Duration of Surgery greater No 12/18/24 10:24 than 60 minutes Number of Risk Factors 2 12/18/24 10:24 PONV Score Moderate Risk 12/18/24 10:24 Height & Weight Height & Weight: Anesthesia: Height & Weight Height 5 ft 8 in 12/24/23 09:46 Respiratory Assessment Respiratory Assessment - manager architectural: Respiratory Tract Infection Hx - manager architectural Hx Respiratory Tract Infection No 12/18/24 10:24 STOP Sleep Apnea STOP Sleep Apnea - manager architectural: STOP Sleep Apnea - manager architectural Hx Hypertension Yes: on meds 12/18/24 10:24 Hx Sleep Apnea Yes 12/18/24 10:24 CPAP No: insurance doesnt cover 12/18/24 10:24 BIPAP No 12/18/24 10:24 Do you snore loudly (louder than talking or can be heard Do you often feel tired/ fatigued/ sleepy during daytime? Has anyone observed you stop breathing during sleep? STOP Results Positive 12/18/24 10:24 QUESTION #5 FULL TEXT : Do you snore loudly (louder than talking or can be heard through closed doors)? 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 Specify any problems Hx of Preganancy in last 3 No 12/18/24 10:24 Months Nurse Filling Out Transfusion [email or web address] 12/18/24 10:24 & Questions: Date: 12/18/24 12/18/24 10:24 Time: 10:26 12/18/24 10:24 Patient unable to answer at this time (ie. confused, unrespo /Reproduction History /Reproductive History - manager architectural: /Reproductive Hx- manager architectural Hx Now No 12/18/24 10:24 Gestational Age (in weeks): EDC: Hx Hx Para Hx Section SAB No 12/18/24 10:24 [facility] Medical History (Updated 12/18/24 @ 10:36 by Martha Varela) Dietary restriction History of diverticulitis Sleep apnea Thyroid disease Fatty liver History of stress test Wears glasses Depression Anxiety History of steroid therapy Diabetes Rheumatoid arthritis High cholesterol Back pain Gastric reflux Non-smoker Asthma Hoarseness Leg cramps History of echocardiogram Cardiology follow-up encounter Hypertension History of epidural anesthesia Home Medications ?Medication ?Instructions ?Recorded ?Last Taken ?Type diclofenac sodium 75 mg 75 mg PO BIDCM 02/13/17 12/23/23 History tablet,delayed release methocarbamol 500 mg tablet 500 mg PO BID 02/13/17 12/23/23 History trazodone 50 mg tablet 150 mg PO QHS 02/13/17 12/23/23 History albuterol sulfate 2.5 mg/3 mL 2.5 mg (3 mL) inhalation Q4HWA.RT 02/16/18 12/05/20 Rx (0.083 %) solution for nebulization PRN Wheezing ##30 hydrocodone-acetaminophen 5-325mg 1 tab PO Q6H PRN Pain 12/03/20 12/05/20 History 5mg-325mg metformin 500 mg tablet 500 mg PO BID 12/03/20 12/23/23 History mometasone 50 mcg/actuation nasal 1 spray intranasal BID 12/03/20 07/11/21 History spray (Nasonex) rosuvastatin 20 mg tablet (Crestor) 20 mg PO DAILY 12/03/20 12/23/23 History spironolactone 25 2 tab PO DAILY 12/03/20 12/23/23 History mg-hydrochlorothiazide 25 mg tablet omeprazole 40 mg capsule,delayed 40 mg PO BID GERD 07/11/21 12/24/23 History release duloxetine 60 mg capsule,delayed 90 mg PO .hs 12/13/23 12/24/23 History release (Cymbalta) gabapentin 400 mg capsule 400 mg PO TID 12/13/23 12/24/23 History hydroxyzine HCl 25 mg tablet 25 mg PO Q6H PRN anxiety 12/13/23 12/17/23 History lisinopril 2.5 mg tablet 2.5 mg PO DAILY 12/13/23 12/24/23 History metoprolol succinate 25 mg 25 mg PO DAILY 12/13/23 12/24/23 History tablet,extended release 24 hr pioglitazone 15 mg tablet (Actos) 15 mg PO DAILY 12/13/23 12/23/23 History levocetirizine 5 mg tablet (24HR 5 mg PO DAILY 12/18/24 Unknown History Allergy Relief) Allergy/AdvReac Type Severity Reaction Status Date / Time losartan Allergy Other Verified 12/18/24 10:10 ciprofloxacin (From Cipro) AdvReac Vomiting Verified 12/18/24 10:10 levothyroxine AdvReac RACING Verified 12/18/24 10:10 HEART Surgical History (Updated 12/18/24 @ 14:00 by Martha Varela) History of insertion of nerve stimulator Hx of colonoscopy History of cardiac catheterization Hx of sinus surgery History of back surgery Hx laparoscopic cholecystectomy Hx of tubal ligation History of partial hysterectomy Hx of bilateral breast reduction surgery Social History Smoking Status: Never smoker Audit: Pertinent Findings Pertinent Findings Stress test pertinent findings: 03/27/2023. Nuclear stress test showed no conclusive evidence of reversible ischemia or infarct. Calculated EF 63% Additional pertinent findings: Cardiology follow-up note from March 13. surveillance system monitor a year ago showed sinus rhythm with few PVCs and no arrhythmia. Currently on Toprol therapy due to palpitations. Recommendation Anesthesia Recommendation Anesthesia recommendation: OPTIMIZED for anesthesia
[2024-12-22] VITALS (7 sets, daily range): BP systolic 106–146; BP diastolic 73–81; PULSE 81–95; RESP 12–18; TEMP 36.3–37.5; O2SAT 93–97; BMI 33.2
--- NOTE | 2024-12-22 07:37 | PCM.PRE.AN2 ---
ASA Classification* ASA Classification ASA Classification: 2 Assessment & Plan Anesthesia* Anesthesia Assessment Anesthesia Assessment: Discussed sedation and/or anesthesia options, risks, benefits, and alternatives with patient/parents/legal guardian/POA. Questions invited. The patient/parents/legal guardian/POA seems to understand and agrees to proceed with anesthesia plan. Reviewed the physical assessment, medical history, allergy history and patient home medications list prior to surgery/procedure/anesthetic and documented any changes. Performed airway and anesthesia risk assessments. Anesthesia Type Anesthesia Type: MAC Anesthesia Focused Assessment* Airway Assessment Mouth opens: >3 cm Mallampati Score: II Labs Anesthesia Preop lab: CBC WBC 19.0 K/mm3 (4.4-11.0) H 02/15/18 23:40 02/15/18 RBC 3.95 M/mm3 (4.2-5.4) L 02/15/18 23:40 02/15/18 Hgb 12.5 g/dl (12.0-15.0) 02/15/18 23:40 02/15/18 Hct 38.0 % (37-47) 02/15/18 23:40 02/15/18 Plt Count 266 K/mm3 (150-450) 02/15/18 23:40 02/15/18 CHEMISTRY Potassium 4.0 mmol/L (3.5-5.1) 02/15/18 23:55 02/15/18 Sodium 137 mmol/L (136-145) 02/15/18 23:55 02/15/18 BUN 16 mg/dL (7-18) 02/15/18 23:55 02/15/18 Creatinine 0.84 mg/dL (0.55-1.02) 02/15/18 23:55 02/15/18 Glucose 176 mg/dL (74-106) H 02/15/18 23:55 02/15/18 POC Glucose 118 mg/dL (74-106) H 12/24/23 09:53 12/24/23 COAG PT 12.6 SECONDS (11.7-14.9) 02/15/18 23:55 02/15/18 Pre-Assessment Diagnosis/Proposed Procedure Planned Operative Procedure(s): B) Block, Medial Branch Nerve, Lumbar L4 L5 S1 UNDER FLUOROSCOPY Anesthesia History 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 When Was Last Pacemaker Check QUESTION #4 FULL TEXT: You/Your Family Experience fever (hyperthermia) with Anesthesia Last Oral Intake Last Oral intake: Last Oral Intake NPO since Meds taken in AM with sips of water? Meds patient instructed to take am of surgery PONV PONV - leather production machine operator: PONV - leather production machine operator Female Yes 12/18/24 10:24 HX of Motion Sickness No 12/18/24 10:24 HX of N/V After Surgery No 12/18/24 10:24 Non-Smoker Yes 12/18/24 10:24 Duration of Surgery greater No 12/18/24 10:24 than 60 minutes Number of Risk Factors 2 12/18/24 10:24 PONV Score Moderate Risk 12/18/24 10:24 Height & Weight Height & Weight: Anesthesia: Height & Weight Height 5 ft 8 in 12/24/23 09:46 Respiratory Assessment Respiratory Assessment - leather production machine operator: Respiratory Tract Infection Hx - leather production machine operator Hx Respiratory Tract Infection No 12/18/24 10:24 STOP Sleep Apnea STOP Sleep Apnea - leather production machine operator: STOP Sleep Apnea - leather production machine operator Hx Hypertension Yes: on meds 12/18/24 10:24 Hx Sleep Apnea Yes 12/18/24 10:24 CPAP No: insurance doesnt cover 12/18/24 10:24 BIPAP No 12/18/24 10:24 Do you snore loudly (louder than talking or can be heard Do you often feel tired/ fatigued/ sleepy during daytime? Has anyone observed you stop breathing during sleep? STOP Results Positive 12/18/24 10:24 QUESTION #5 FULL TEXT : Do you snore loudly (louder than talking or can be heard through closed doors)? 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 Specify any problems Hx of Preganancy in last 3 No 12/18/24 10:24 Months Nurse Filling Out Transfusion [email or web address] 12/18/24 10:24 & Questions: Date: 12/18/24 12/18/24 10:24 Time: 10:26 12/18/24 10:24 Patient unable to answer at this time (ie. confused, unrespo /Reproduction History /Reproductive History - leather production machine operator: /Reproductive Hx- leather production machine operator Hx Now No 12/18/24 10:24 Gestational Age (in weeks): EDC: Hx Hx Para Hx Section SAB No 12/18/24 10:24 Active Medications Active Medications: Current Medications Generic Name Dose Route Start Last Admin Trade Name Freq PRN Reason Stop Dose Admin Lactated Ringer's 1,000 mls @ 15 mls/hr 12/22/24 07:30 IV .Q48H WALKER PFSH Medical History Dietary restriction History of diverticulitis Sleep apnea Thyroid disease Fatty liver History of stress test Wears glasses Depression Anxiety History of steroid therapy Diabetes Rheumatoid arthritis High cholesterol Back pain Gastric reflux Non-smoker Asthma Hoarseness Leg cramps History of echocardiogram Cardiology follow-up encounter Hypertension History of epidural anesthesia Home Medications ?Medication ?Instructions ?Recorded ?Last Taken ?Type diclofenac sodium 75 mg 75 mg PO BIDCM 02/13/17 12/23/23 History tablet,delayed release methocarbamol 500 mg tablet 500 mg PO BID 02/13/17 12/23/23 History trazodone 50 mg tablet 150 mg PO QHS 02/13/17 12/23/23 History albuterol sulfate 2.5 mg/3 mL 2.5 mg (3 mL) inhalation Q4HWA.RT 02/16/18 12/05/20 Rx (0.083 %) solution for nebulization PRN Wheezing ##30 hydrocodone-acetaminophen 5-325mg 1 tab PO Q6H PRN Pain 12/03/20 12/05/20 History 5mg-325mg metformin 500 mg tablet 500 mg PO BID 12/03/20 12/23/23 History mometasone 50 mcg/actuation nasal 1 spray intranasal BID 12/03/20 07/11/21 History spray (Nasonex) rosuvastatin 20 mg tablet (Crestor) 20 mg PO DAILY 12/03/20 12/23/23 History spironolactone 25 2 tab PO DAILY 12/03/20 12/23/23 History mg-hydrochlorothiazide 25 mg tablet omeprazole 40 mg capsule,delayed 40 mg PO BID GERD 07/11/21 12/24/23 History release duloxetine 60 mg capsule,delayed 90 mg PO .hs 12/13/23 12/24/23 History release (Cymbalta) gabapentin 400 mg capsule 400 mg PO TID 12/13/23 12/24/23 History hydroxyzine HCl 25 mg tablet 25 mg PO Q6H PRN anxiety 12/13/23 12/17/23 History lisinopril 2.5 mg tablet 2.5 mg PO DAILY 12/13/23 12/24/23 History metoprolol succinate 25 mg 25 mg PO DAILY 12/13/23 12/24/23 History tablet,extended release 24 hr pioglitazone 15 mg tablet (Actos) 15 mg PO DAILY 12/13/23 12/23/23 History levocetirizine 5 mg tablet (24HR 5 mg PO DAILY 12/18/24 Unknown History Allergy Relief) Allergy/AdvReac Type Severity Reaction Status Date / Time losartan Allergy Other Verified 12/18/24 10:10 ciprofloxacin (From Cipro) AdvReac Vomiting Verified 12/18/24 10:10 levothyroxine AdvReac RACING Verified 12/18/24 10:10 HEART Surgical History History of insertion of nerve stimulator Hx of colonoscopy History of cardiac catheterization Hx of sinus surgery History of back surgery Hx laparoscopic cholecystectomy Hx of tubal ligation History of partial hysterectomy Hx of bilateral breast reduction surgery Social History Smoking Status: Never smoker Review of Systems (Anesthesia) ROS Narrative System reviewed and no additional complaints, except as documented.
--- NOTE | 2024-12-22 08:45 | RAD_ITS ---
PROCEDURE: L/S SPINE W BEND MIN 6 VW 12/22/2024 REASON FOR EXAM: BLOCK, MEDIAL BRANCH NERVE, BILAT L4 L5 S1 TECHNIQUE: L/S SPINE W BEND MIN 6 VW Fluoroscopy time 5.3 seconds. Total radiation dose 2.94 mGy. COMPARISON: None. FINDINGS: Fluoroscopic images for medial branch nerve block at L4-L5 and L5-S1 levels. RAD/L/S Spine w Bend Min 6 Vw IMPRESSION: Fluoroscopic images for medial branch nerve block at L4-L5 and L5-S1 levels. [facility]
[2024-12-22] MEDS: Lidocaine 1% (5 ml sdv) 5 ML Vial (08:50)
--- NOTE | 2024-12-22 08:56 | OP.PCM_ITS ---
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 tape control: No Type of Anesthesia: Local MAC RN Documented Start/Stop Times: Operation Date: 12/22/24 08:50 Case Time Into Pre-Op 12/22/24 07:24 Out of Pre-Op 12/22/24 08:31 Anesthesia Start 12/22/24 08:41 Into Room 12/22/24 08:41 Procedure Start 12/22/24 08:47 Procedure End 12/22/24 08:51 Anesthesia End 12/22/24 08:54 Out of Room 12/22/24 08:54 Procedure Start Time: 08:57 Procedure Stop Time: 08:57 Select all DRAINS/GRAFTS/IMPLANTS that apply: None Estimated Blood Loss: 1 Specimen collected: No Description of surgery: PROCEDURE PERFORMED: Bilateral lumbar medial branch block at L4, L5, and S1. ANESTHESIA: MAC. BLOOD LOSS: Minimal. COMPLICATIONS: None. DESCRIPTION OF PROCEDURE: History and physical of today was reviewed. Risks and benefits of the procedure were explained. The patient understood and agreed to proceed. Informed consent was obtained. IV inserted per routine protocol. The patient was taken to the operating room and placed in the prone position with a pillow positioned underneath the abdomen. The lower back area was prepped and draped in a sterile fashion using iodine x3. Under fluoroscopy guidance on AP view, the L4 through S1 vertebral bodies were visualized. The skin and subcutaneous tissue was anesthetized with approximately 5 mL of 1% lidocaine using a 25-gauge regular needle. Under direct visualization with fluoroscopy, at approximately 25-degree angle, starting on the left L4, ending on the right L4, passing through the L5 and S1 bilaterally, using a 22-gauge 3-1/2-inch spinal needle, the needle was advanced via the skin. The tip of the needle was maneuvered and directed towards the superior medial gutter of the transverse process at the vicinity of the medial branch. Once tip of the needle was in contact with the bone, the needle was pulled approximately 2 mm off the bone. After negative aspiration for blood or CSF and confirmation on AP, oblique as well as lateral view, a total of 12 mL of preservative-free 0.25% Marcaine with 80 mg of Depo-Medrol was injected in divided doses between those six levels. The needles were then removed intact. The patient experienced no sign or symptoms of intrathecal or intravascular injection. The patient experienced no paresthesia. The procedure was completed without any apparent difficulty or any complications. The patient appeared to tolerate it well. ASSESSMENT AND PLAN: This is a 49-year-old female with lumbosacral spondylosis, lumbosacral degenerative disc disease, lumbar facet arthropathy, status post bilateral lumbar medial branch block at L4-S1, patient will continue her current medications, patient will follow-up in approximately 1 to 2 weeks for reevaluation. Surgical Findings: 1 Complications Complications: No Admit VTE Documentation VTE Present on Admission: No VTE Mechan Device Prophylaxis: None VTE Pharm Prophylaxis ordered?: No
--- NOTE | 2024-12-22 12:53 | PCM.POST.ANE ---
Anesthesia: Postop Eval I Current Vital Signs Temperature: 99.5 F Pulse Rate: 95 Blood Pressure: 130/79 Respiratory Rate: 18 Pulse Ox: 97 Oxygen Delivery Method: Room Air Assessment Airway patent: Yes Spontaneous unlabored respirations: Yes Mental status: Awake nausea: No Vomiting: No Anesthesia Complication: No Fluid Hydration Crystalloid volume administer (ml): 200 Total IV fluid infused: 200 Progress Note Anesthesia document: Postop Eval 1 completed: Yes
== END 2024-12-22 09:55 | disposition home or self-care (01) ==
LOC: SDC 07:21 → AC 07:21
PROVIDERS: PCP Student in an Organized Health Care Education/Training Program; Referring Provider Anesthesiology Pain Medicine; Visit Provider Anesthesiology Pain Medicine
PROC: 3E0S3BZ Introduction of Anesthetic Agent into Epidural Space, Percutaneous Approach (ICD-10-PCS; CPT 62322; principal; 2024-12-22 08:45)
DX: M47.816 Spondylosis without myelopathy or radiculopathy, lumbar region (principal); E11.9 Type 2 diabetes mellitus without complications; M47.817 Spondylosis without myelopathy or radiculopathy, lumbosacral region; M51.379 Other intervertebral disc degeneration, lumbosacral region without mention of lumbar back pain or lower extremity pain; M46.86 Other specified inflammatory spondylopathies, lumbar region; I10 Essential (primary) hypertension; E78.00 Pure hypercholesterolemia, unspecified; Z79.84 Long term (current) use of oral hypoglycemic drugs; Z79.891 Long term (current) use of opiate analgesic; Z79.899 Other long term (current) drug therapy
CPT/HCPCS: 64493; 64494; 01992; 64483; 72114; 82962